=== PATIENT | male | born 1940 | race Caucasian/White ===

== ENCOUNTER 2022-01-29 12:30 | Inpatient (IN) | payer MEDICARE, OTHER ==
[2022-01-29 14:23] VITALS: BMI 31.0
[2022-02-03] MEDS ORDERED: Neomycin-Polymyxin 1 ML AMP ONE ×2 (10:55→11:29)
[2022-02-03] MEDS ORDERED: PROPOFOL 40 ML ONE (11:27)
[2022-02-03] MEDS ORDERED: EPINEPHrine 1 MG/ML AMP ONE (11:30)
[2022-02-03] MEDS ORDERED: Bupivacaine PF 0.5% 30 ML VIAL ONE ×2 (11:30→11:34)
[2022-02-03] MEDS ORDERED: Ropivacaine 0.5% HCl/PF (150 MG/30 ML VIAL) ONE (11:32)
[2022-02-03] MEDS ORDERED: Dexamethasone 4 mg/ml Vial ONE ×2 (11:33→12:38)
[2022-02-03] MEDS ORDERED: Lidocaine 1% MPF 2 ML VIAL ONE (11:33)
[2022-02-03] MEDS ORDERED: Midazolam HCl 2 mg/2 ml Vial ONE (11:34)
[2022-02-03] MEDS ORDERED: CEFAZOLIN 2 GM VIAL ONE (11:38)
[2022-02-03] MEDS ORDERED: HYDROmorphone 0.5 MG/0.5 ML SYRINGE ONE (11:56)
[2022-02-03] MEDS ORDERED: Ondansetron PF 4 MG/2 ML Vial ONE ×2 (12:38→13:25)
[2022-02-03] MEDS ORDERED: Fentanyl 100 MCG/2 ML VIAL ONE (13:25)
[2022-02-03] MEDS ORDERED: Zolpidem Tartrate 5 MG TAB PO PRN (13:36)
[2022-02-03] MEDS ORDERED: Morphine 4 MG/ML VIAL SLOW IVP PRN ×2 (13:36→14:04)
[2022-02-03] MEDS ORDERED: HYDROcodone/Acetaminophen 10/325 mg Tablet PO PRN (13:36)
[2022-02-03] MEDS ORDERED: Cepastat Lozenges 1 LOZ PO PRN (13:36)
[2022-02-03] MEDS ORDERED: Ondansetron PF 4 MG/2 ML Vial IM PRN (13:36)
[2022-02-03] MEDS: HYDROcodone/Acetaminophen 10/325 mg Tablet PO PRN ×2 (16:25→22:45)
[2022-02-03] MEDS: ALPRAZolam 0.5 MG TAB PO SCH (21:06)
[2022-02-03] MEDS: CEFAZOLIN 2 GM in Sodium Chloride 0.9% 100 ML IVPB SCH (21:06)
[2022-02-03] MEDS: Montelukast Sodium 10 mg Tablet PO SCH (21:07)
[2022-02-03] MEDS: Azelastine 137 MCG/Spray 30 ML NS SCH (22:44)
[2022-02-04 04:19] LABS: Hemoglobin 13.5 g/dL (13.5-17.5); Mean Corpuscular HGB CONC 34.5 g/dL (32.0-36.0); Mean Corpuscular Hemoglobin 36.4 pg (27.0-33.0); Mean Corpuscular Volume 105.4 fl (81.2-95.1); Platelet Count 192 10x3/uL (150-450); RBC Distribution Width 13.6 % (11.5-14.5); Red Blood Cell (RBC) Count 3.71 10x6/uL (4.32-5.72); White Blood Cell (WBC) Count 14.6 10x3/uL (3.5-10.5)
[2022-02-04] MEDS: CEFAZOLIN 2 GM in Sodium Chloride 0.9% 100 ML IVPB SCH (04:38)
[2022-02-04] MEDS: HYDROcodone/Acetaminophen 10/325 mg Tablet PO PRN ×4 (09:12→21:38)
[2022-02-04] MEDS: Polyethylene Glycol 3350 17 GM Packet PO SCH (10:38)
[2022-02-04] MEDS: Ezetimibe 10 MG TAB PO SCH (10:39)
[2022-02-04] MEDS: Multivitamin W/ Minerals 1 TAB PO SCH (10:39)
[2022-02-04] MEDS: Amlodipine 5 MG TAB PO SCH (10:40)
[2022-02-04] MEDS: Clopidogrel Bisulfate 75 MG TAB PO SCH (10:40)
[2022-02-04] MEDS: Hydrochlorothiazide 25 MG TAB PO SCH (10:40)
[2022-02-04] MEDS: Azelastine 137 MCG/Spray 30 ML NS SCH ×2 (10:41→21:39)
[2022-02-04] MEDS: Albuterol Sulfate 2.5 mg/3 ml Neb NEB SCH (19:23)
[2022-02-04] MEDS: Montelukast Sodium 10 mg Tablet PO SCH (21:39)
[2022-02-04] MEDS: ALPRAZolam 0.5 MG TAB PO SCH (21:39)
[2022-02-05] MEDS: Albuterol Sulfate 2.5 mg/3 ml Neb NEB SCH ×4 (01:30→18:44)
[2022-02-05] MEDS: HYDROcodone/Acetaminophen 10/325 mg Tablet PO PRN ×3 (08:14→20:56)
[2022-02-05] MEDS: Clopidogrel Bisulfate 75 MG TAB PO SCH (08:15)
[2022-02-05] MEDS: Hydrochlorothiazide 25 MG TAB PO SCH (08:15)
[2022-02-05] MEDS: Multivitamin W/ Minerals 1 TAB PO SCH (08:15)
[2022-02-05] MEDS: Polyethylene Glycol 3350 17 GM Packet PO SCH (08:15)
[2022-02-05] MEDS: Amlodipine 5 MG TAB PO SCH (08:15)
[2022-02-05] MEDS: Azelastine 137 MCG/Spray 30 ML NS SCH ×2 (11:23→20:56)
[2022-02-05] MEDS: Ezetimibe 10 MG TAB PO SCH (11:24)
[2022-02-05] MEDS: Montelukast Sodium 10 mg Tablet PO SCH (20:56)
[2022-02-05] MEDS: ALPRAZolam 0.5 MG TAB PO SCH (20:56)
[2022-02-06] MEDS: Albuterol Sulfate 2.5 mg/3 ml Neb NEB SCH ×4 (01:00→18:55)
[2022-02-06] MEDS: HYDROcodone/Acetaminophen 10/325 mg Tablet PO PRN (06:50)
[2022-02-06] MEDS: Amlodipine 5 MG TAB PO SCH (08:02)
[2022-02-06] MEDS: Hydrochlorothiazide 25 MG TAB PO SCH (08:02)
[2022-02-06] MEDS: Ezetimibe 10 MG TAB PO SCH (08:02)
[2022-02-06] MEDS: Polyethylene Glycol 3350 17 GM Packet PO SCH (08:02)
[2022-02-06] MEDS: Clopidogrel Bisulfate 75 MG TAB PO SCH (08:02)
[2022-02-06] MEDS: Multivitamin W/ Minerals 1 TAB PO SCH (08:02)
[2022-02-06] MEDS: Azelastine 137 MCG/Spray 30 ML NS SCH (08:04)
[2022-02-06 18:30] VITALS: BP 136/64; TEMP 97.7
== END 2022-02-06 19:20 | DRG 470 ==
LOC: CSHERHOLD 02-03 09:03 → EDSTATUS 02-03 12:30 → CSHTELE 02-03 15:19
PROVIDERS: ADMIT Orthopaedic Surgery; ATTEND Orthopaedic Surgery
PROC: 0SRC0J9 Replacement of Right Knee Joint with Synthetic Substitute, Cemented, Open Approach (ICD-10-PCS; principal; 2022-02-03)
DX: M17.11 Unilateral primary osteoarthritis, right knee (principal); Z20.822 Contact with and (suspected) exposure to COVID-19; F32.A Depression, unspecified; G47.33 Obstructive sleep apnea (adult) (pediatric); I10 Essential (primary) hypertension; I25.10 Atherosclerotic heart disease of native coronary artery without angina pectoris; E78.5 Hyperlipidemia, unspecified; Z87.891 Personal history of nicotine dependence; Z79.899 Other long term (current) drug therapy; Z85.51 Personal history of malignant neoplasm of bladder; Z95.0 Presence of cardiac pacemaker; Z95.5 Presence of coronary angioplasty implant and graft; Z79.02 Long term (current) use of antithrombotics/antiplatelets; Z79.82 Long term (current) use of aspirin; Z90.49 Acquired absence of other specified parts of digestive tract
CPT/HCPCS: 85027; 94640; 94760; C1776; J0171; J0690; J1100; J1170; J2250; J2270; J2405; J2704; J2795; J3010; J3490; J7611; S0020

== ENCOUNTER 2025-01-31 07:42 | Outpatient (CLI) | payer MEDICARE, OTHER ==
[2025-01-31 08:35] LABS: Estimated GFR - POC 59.0
[2025-01-31] MEDS ORDERED: Iopamidol 300 61% 100 ML VIAL FS ONE (08:51)
== END 2025-01-31 07:43 | disposition home or self-care (01) ==
LOC: CSHCT 07:42
PROVIDERS: ATTEND Family Medicine
DX: C67.9 Malignant neoplasm of bladder, unspecified (principal); R16.1 Splenomegaly, not elsewhere classified; D64.9 Anemia, unspecified; Z90.5 Acquired absence of kidney; E27.8 Other specified disorders of adrenal gland; S36.029D Unspecified contusion of spleen, subsequent encounter
CPT/HCPCS: 36415; 74177; 82565